=== PATIENT | female | born 1930 | race African-American/Black ===

== ENCOUNTER 2018-08-10 02:26 | Emergency (ER) | payer MEDICARE ==
[~2018-08-10 02:26] MED LIST: EPINEPHrine 1 MG/10 ML Abboject SYRINGE ONE
== END 2018-08-10 03:28 | disposition expired ==
LOC: ERS 02:26
DX: I46.9 Cardiac arrest, cause unspecified (principal); K21.9 Gastro-esophageal reflux disease without esophagitis; M10.9 Gout, unspecified; N18.3 Chronic kidney disease, stage 3 (moderate); I25.10 Atherosclerotic heart disease of native coronary artery without angina pectoris; E11.9 Type 2 diabetes mellitus without complications; I48.0 Paroxysmal atrial fibrillation; E03.9 Hypothyroidism, unspecified; E21.3 Hyperparathyroidism, unspecified; E78.2 Mixed hyperlipidemia; F32.9 Major depressive disorder, single episode, unspecified; Z79.899 Other long term (current) drug therapy; Z79.82 Long term (current) use of aspirin; Z79.4 Long term (current) use of insulin
CPT/HCPCS: 92950; 96374; J0171